=== PATIENT | male | born 1940 | race Asian ===

== ENCOUNTER → 2024-10-05 | Outpatient (CLI) | payer MEDICAID, SELFPAY ==
--- NOTE | 2024-10-05 10:30 | XR_ITS ---
Examination: Modified barium swallow Video esophagram Exam date and time: October 05, 2024 1139 hours INDICATIONS: Parkinson's disease with chronic aspiration difficulty swallowing TECHNIQUE AND FINDINGS: 63 spot fluoroscopic films soft tissue lateral neck obtained with the patient swallowing thin barium, pudding barium and cracker barium Fluoroscopy 0.1 minute radiation dose 36.83 milligray Premature transfer and significant pooling within barium No pharyngeal penetration or aspiration IMPRESSION: No pharyngeal penetration or aspiration
== END | disposition home or self-care (01) ==
PROVIDERS: PCP Student in an Organized Health Care Education/Training Program; Referring Provider Student in an Organized Health Care Education/Training Program; Visit Provider Student in an Organized Health Care Education/Training Program
DX: G20.A1 Parkinson's disease without dyskinesia, without mention of fluctuations (principal)
CPT/HCPCS: 74230; A9270